=== PATIENT | female | born 2000 | race Two or more races ===

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

== ENCOUNTER 2019-03-03 17:41 | Emergency (ER) | payer MEDICAID ==
[2019-03-03 18:04] VITALS: BP 128/77
[2019-03-03] MEDS ORDERED: HYDROCODONE/ACETAMINOPHEN 5-325 MG TABLET PO ONE (18:50)
--- NOTE | 2019-03-03 18:51 | ER Document Report ---
HPI - HPI Patient complains to provider of: Right ankle and foot pain Time Seen by Provider: 03/03/19 18:42 Onset: Yesterday Onset/Duration: Sudden Quality of pain: Achy Pain Level: 4 Context: Patient states [place] the [place] and thought something was in the water. Patient states that she moved suddenly and felt a pop in her foot and ankle. Patient complains of persistent pain since then. Patient does have a previous history of fracture to the right ankle Associated Symptoms: Other - Right foot and ankle pain Exacerbated by: Standing, Movement, Walking Relieved by: Denies Similar symptoms previously: Yes Recently seen / treated by doctor: No - ROS ROS below otherwise negative: Yes Systems Reviewed and Negative: Yes All other systems reviewed and negative - NEURO Neurology: DENIES: Weakness - GASTROINTESTINAL Gastrointestinal: DENIES: Nausea - REPRODUCTIVE LMP: 02/18/19 Reproductive: DENIES: : - MUSCULOSKELETAL Musculoskeletal: REPORTS: Extremity pain, Swelling - DERM Skin Color: Normal Skin Problems: None Past Medical History - General Information source: Patient - Social History Smoking Status: Never Smoker Frequency of alcohol use: None Drug Abuse: None Occupation: None Lives with: Family Family History: Reviewed & Not Pertinent Pulmonary Medical History: Reports: Hx Asthma Renal/ Medical History: Reports: Hx Ovarian Cysts. Denies: Hx Peritoneal Dialysis Psychiatric Medical History: Reports: Hx Attention Deficit Hyperactivity Disorder, Hx Bipolar Disorder, Hx Depression Traumatic Medical History: Reports: Hx Fractures - Patient had a subtle right posterior malleolar fracture found only by MRI Past Surgical History: Reports: Hx Orthopedic Surgery - r ankle, Hx Tonsillectomy - Immunizations Immunizations up to date: Yes Vertical Provider Document - CONSTITUTIONAL Agree With Documented VS: Yes Exam Limitations: No Limitations General Appearance: WD/WN, No Apparent Distress - INFECTION CONTROL TRAVEL OUTSIDE OF THE [place] IN LAST 30 DAYS: No - HEENT HEENT: Atraumatic, Normocephalic - NECK Neck: Normal Inspection - RESPIRATORY Respiratory: No Respiratory Distress - CARDIOVASCULAR Pulses: Normal: Dorsalis pedis - BACK Back: Normal Inspection - MUSCULOSKELETAL/EXTREMETIES Musculoskeletal/Extremeties: MAEW, Tender - Right ankle tenderness over bilateral malleolar area, right midfoot tenderness over first cuneiform, Edema - Right lateral malleolar. negative: Eccymosis - NEURO Level of Consciousness: Awake, Alert, Appropriate Motor/Sensory: No Motor Deficit - DERM Integumentary: Warm, Dry, No Rash Course - Vital Signs Vital signs: Temp Pulse Resp BP Pulse Ox 97.4 F 70 18 128/77 H 98 03/03/19 18:03 03/03/19 18:03 03/03/19 18:03 03/03/19 18:03 03/03/19 18:03 - Diagnostic Test Radiology reviewed: Pending, Image reviewed Procedures - Immobilization Right Ankle Pre-Proc Neuro Vasc Exam: Normal Immobilizer type: Ankle stirrup Performed by: PCT Post-Proc Neuro Vasc Exam: Normal Alignment checked and good: Yes Discharge - Discharge Clinical Impression: Right ankle sprain Qualifiers: Encounter type: initial encounter Involved ligament of ankle: unspecified ligament Qualified Code(s): S93.401A - Sprain of unspecified ligament of right a nkle, initial encounter Right foot sprain Qualifiers: Encounter type: initial encounter Qualified Code(s): S93.601A - Unspecified sprain of right foot, initial encounter Condition: Stable Disposition: HOME, SELF-CARE Instructions: Acetaminophen, Ankle Stirrup Splint ([facility]), Use of Crutches ([facility]), Ice & Elevation ([facility]), Sprain ([facility]), Sprained Ankle ([facility]) Additional Instructions: Return immediately for any new or worsening symptoms Followup with your primary care provider, call tomorrow to make a followup appointment Follow-up with your orthopedic doctor for recheck, call tomorrow for follow-up Weight bearing as tolerated Prescriptions: Naproxen [Naprosyn 250 Nmg Tablet] 1 tab PO BID #14 tablet Referrals: FABIEN YANES DO [Primary Care Provider] - Follow up as needed [facility] [Provider Group] - Follow up as needed
--- NOTE | 2019-03-03 20:05 | RADIOLOGY REPORT (SQ) ---
EXAM DESCRIPTION: FOOT RIGHT COMPLETE COMPLETED DATE/TIME: 03/03/2019 7:26 pm REASON FOR STUDY: rolled foot[place]ankle [place] COMPARISON: 02/16/2016 NUMBER OF VIEWS: Three views. TECHNIQUE: AP, lateral and oblique radiographic images acquired of the right foot. LIMITATIONS: None. FINDINGS: MINERALIZATION: Normal. BONES: No acute fracture or dislocation. No worrisome bone lesions. JOINTS: No effusions. SOFT TISSUES: No soft tissue swelling. No foreign body. OTHER: No other significant finding. IMPRESSION: NEGATIVE STUDY OF THE RIGHT FOOT. NO RADIOGRAPHIC EVIDENCE OF ACUTE INJURY. TECHNICAL DOCUMENTATION: JOB ID: [id number] [employer]- All Rights Reserved Reading location - IP/workstation name: [email or web address]
--- NOTE | 2019-03-03 20:06 | RADIOLOGY REPORT (SQ) ---
EXAM DESCRIPTION: ANKLE RIGHT COMPLETE COMPLETED DATE/TIME: 03/03/2019 7:26 pm REASON FOR STUDY: rolled foot[place]ankle at beach COMPARISON: 02/27/2016 NUMBER OF VIEWS: Three views. TECHNIQUE: AP, lateral, and oblique radiographic images acquired of the right ankle. LIMITATIONS: None. FINDINGS: MINERALIZATION: Normal. BONES: No acute fracture or dislocation. No worrisome bone lesions. JOINTS: No effusions. SOFT TISSUES: No soft tissue swelling. No foreign body. OTHER: No other significant finding. IMPRESSION: NEGATIVE STUDY OF THE RIGHT ANKLE. NO RADIOGRAPHIC EVIDENCE OF ACUTE INJURY. TECHNICAL DOCUMENTATION: JOB ID: [id number] [employer]- All Rights Reserved Reading location - IP/workstation name: [email or web address]
== END 2019-03-03 20:24 | disposition home or self-care (01) ==
LOC: ER 17:41
DX: S93.401A Sprain of unspecified ligament of right ankle, initial encounter (principal); S93.601A Unspecified sprain of right foot, initial encounter; X50.0XXA Overexertion from strenuous movement or load, initial encounter; Y92.832 Beach as the place of occurrence of the external cause
CPT/HCPCS: 99283; 73610; 73630; L1902

== ENCOUNTER 2019-08-23 02:51 | Emergency (ER) | payer MEDICAID ==
--- NOTE | 2019-08-23 05:05 | RADIOLOGY REPORT (SQ) ---
EXAM DESCRIPTION: XR CHEST 2 VIEWS COMPLETED DATE/TME: 08/23/2019 04:40 CLINICAL HISTORY: 19 years, Female, SOB COMPARISON: None. NUMBER OF VIEWS: 2 TECHNIQUE: 2 views of the chest LIMITATIONS: None. FINDINGS: Heart size is normal. Lungs are clear. No pneumothorax IMPRESSION: No acute cardiopulmonary process copyright 2010 [employer]- All Rights Reserved
[2019-08-23] MEDS ORDERED: PREDNISONE 20 MG TABLET PO ONE (06:00)
[2019-08-23] MEDS ORDERED: IPRATROPIUM/ALBUTEROL 0.5-2.5 MG/3 ML AMPUL NEB ONE (06:00)
[2019-08-23 06:02] LABS: APPEARANCE,URINE SLIGHTLY-CLOUDY; BILIRUBIN,URINE NEGATIVE (NEGATIVE); COLOR,URINE YELLOW; GLUCOSE, URINE NEGATIVE (NEGATIVE); KETONES,URINE NEGATIVE (NEGATIVE); LEUKOCYTE ESTERASE,URINE NEGATIVE (NEGATIVE); NITRITE,URINE NEGATIVE (NEGATIVE); PROTEIN,URINE NEGATIVE (NEGATIVE); URINE SPECIFIC GRAVITY 1.015; UROBILINOGEN,URINE NEGATIVE mg/dL (<2.0)
[2019-08-23 06:09] LABS: ABSOLUTE EOSINOPHILS # (AUTO) 0.2 10^3/uL (0.0-0.6); ABSOLUTE LYMPHOCYTES (AUTO) 1.9 10^3/uL (0.5-4.7); ABSOLUTE MONOCYTES (AUTO) 1.1 10^3/uL (0.1-1.4); ABSOLUTE NEUT (AUTO) 3.9 10^3/uL (1.7-8.2); BASOPHILS % (AUTO) 0.7 % (0-2); EOSINOPHILS % (AUTO) 2.3 % (0-6); HEMATOCRIT 40.1 % (36.0-47.0); HEMOGLOBIN 13.8 g/dL (12.0-15.5); LYMPHOCYTES % (AUTO) 26.6 % (13-45); MEAN CORPUSCULAR HEMOGLOBIN 30.3 pg (27.0-33.4); MEAN CORPUSCULAR HGB CONC 34.5 g/dL (32.0-36.0); MEAN CORPUSCULAR VOLUME 88 fl (80-97); MONOCYTES % (AUTO) 15.6 % (3-13); PLATELET COUNT 319 10^3/uL (150-450); RED BLOOD COUNT 4.55 10^6/uL (3.72-5.28); RED CELL DISTRIBUTION WIDTH 11.9 % (11.5-14.0); SEGMENTED NEUTROPHILS % (AUTO) 54.8 % (42-78); TOTAL CELLS COUNTED % (AUTO) 100 %; WHITE BLOOD COUNT 7.2 10^3/uL (4.0-10.5)
[2019-08-23 06:18] LABS: ALBUMIN 3.7 g/dL (3.5-5.0); ALKALINE PHOSPHATASE 79 U/L (38-126); ANION GAP 8 (5-19); ASPARTATE AMINO TRANSFERASE 33 U/L (14-36); BILIRUBIN,DIRECT 0.1 mg/dL (0.0-0.4); BILIRUBIN,TOTAL 0.4 mg/dL (0.2-1.3); BLOOD UREA NITROGEN 9 mg/dL (7-20); CALCIUM 9.8 mg/dL (8.4-10.2); CARBON DIOXIDE 24 mmol/L (22-30); CHLORIDE 106 mmol/L (98-107); GLUCOSE 87 mg/dL (75-110); POTASSIUM 4.1 mmol/L (3.6-5.0); TOTAL PROTEIN 6.2 g/dL (6.3-8.2)
[2019-08-23] MEDS ORDERED: KETOROLAC TROMETHAMINE INJ/PF 30 MG/1 ML SDV IV ONE (06:42)
--- NOTE | 2019-08-23 06:42 | ER Document Report ---
ED General - General Chief Complaint: Cold Symptoms Stated Complaint: CHEST PAIN,SHORTNESS OF BREATH Time Seen by Provider: 08/23/19 04:39 Primary Care Provider: FABIEN YANES DO [Primary Care Provider] - Follow up as needed Notes: Patient is a 19-year-old female history of asthma presents to the emergency department for cough and congestion for the last 5 days. Patient voices in the last 24 hours she has had over 6 episodes of posttussive vomiting. Voices to 2 episodes of diarrhea as well. States she did have a fever T-max 103 last evening. Patient's denying any abdominal pain or dysuria. States intermit tently her lower ribs hurt when she takes a deep breath or coughs. States last time she is her albuterol inhaler was approximately 2300 hrs. yesterday evening. TRAVEL OUTSIDE OF THE [place] IN LAST 30 DAYS: No - Related Data Allergies/Adverse Reactions: No Known Allergies Allergy (Verified 03/03/19 17:43) Home Medications: albuterol inhaler Past Medical History - General Information source: Patient - Social History Smoking Status: Never Smoker Chew tobacco use (# tins/day): No Frequency of alcohol use: None Drug Abuse: None Family History: Reviewed & Not Pertinent Patient has suicidal ideation: No Patient has homicidal ideation: No Pulmonary Medical History: Reports: Hx Asthma Renal/ Medical History: Reports: Hx Ovarian Cysts. Denies: Hx Peritoneal Dialysis Psychiatric Medical History: Reports: Hx Attention Deficit Hyperactivity Disorder, Hx Bipolar Disorder, Hx Depression Traumatic Medical History: Reports: Hx Fractures - Patient had a subtle right posterior malleolar fracture found only by MRI Past Surgical History: Reports: Hx Orthopedic Surgery - r ankle, Hx Tonsillectomy - Immunizations Immunizations up to date: Yes Review of Systems - Review of Systems Constitutional: Fever EENT: See HPI Cardiovascular: See HPI Respiratory: See HPI Gastrointestinal: See HPI Genitourinary: No symptoms reported Female Genitourinary: No symptoms reported Musculoskeletal: No symptoms reported Skin: No symptoms reported Hematologic/Lymphatic: No symptoms reported Neurological/Psychological: No symptoms reported Physical Exam - Vital signs Vitals: Temp Pulse Resp BP Pulse Ox 99.3 F 93 17 143/79 H 97 08/23/19 03:00 08/23/19 03:00 08/23/19 03:00 08/23/19 03:00 08/23/19 03:00 - Notes Notes: GENERAL: Alert, interacts well. No acute distress. HEAD: Normocephalic, atraumatic. EYES: Pupils equal, round, and reactive to light. Extraocular movements intact. ENT: Oral mucosa moist, tongue midline. Nares patent, TM's intact, no nerythematous, nonbulging bilaterally. Pharynx within normal limits no palatal petechiae noted NECK: Full range of motion. Supple. Trachea midline. No lymphadenopathy appreciated LUNGS: Expiratory wheeze to auscultation bilateral bases, no discernible rales, or rhonchi. No respiratory distress. HEART: Regular rate and rhythm. No murmur ABDOMEN: Soft, non-tender. Non-distended. Bowel sounds present in all 4 quadrants. EXTREMITIES: Moves all 4 extremities spontaneously. No edema, normal radial and dorsalis pedis pulses bilaterally. No cyanosis. BACK: no cervical, thoracic, lumbar midline tenderness. No saddle anesthesia, normal distal neurovascular exam. NEUROLOGICAL: Alert and oriented x3. Normal speech. cranial nerves II through XII grossly intact. PSYCH: Normal affect, normal mood. SKIN: Warm, dry, normal turgor. No rashes or lesions noted. Course - Re-evaluation Re-evalutation: Laboratory 08/23/19 08/23/19 08/23/19 05:11 05:11 05:11 WBC 7.2 RBC 4.55 Hgb 13.8 Hct 40.1 MCV 88 MCH 30.3 MCHC 34.5 RDW 11.9 Plt Count 319 Lymph % (Auto) 26.6 Stanton % (Auto) 15.6 H Eos % (Auto) 2.3 Baso % (Auto) 0.7 Absolute Neuts (auto) 3.9 Absolute Lymphs (auto) 1.9 Absolute Monos (auto) 1.1 Absolute Eos (auto) 0.2 Absolute Basos (auto) 0.0 Seg Neutrophils % 54.8 Sodium 137.5 Potassium 4.1 Chloride 106 Carbon Dioxide 24 Anion Gap 8 BUN 9 Creatinine 0.66 Est GFR ( Amer) > 60 Est GFR (MDRD) Non-Af > 60 Glucose 87 Calcium 9.8 Total Bilirubin 0.4 Direct Bilirubin 0.1 Neonat Total Bilirubin Not Reportable Neonat Direct Bilirubin Not Reportable Neonat Indirect Bili Not Reportable AST 33 ALT 43 Alkaline Phosphatase 79 Total Protein 6.2 L Albumin 3.7 Lipase 46.0 Serum HCG, Qual NEGATIVE Urine Color Urine Appearance Urine pH Ur Specific [place] Urine Protein Urine Glucose (UA) Urine Ketones Urine Blood Urine Nitrite Urine Bilirubin Urine Urobilinogen Ur Leukocyte Esterase Urine WBC (Auto) Urine RBC (Auto) Squamous Epi Cells Auto Urine Mucus (Auto) Urine Ascorbic Acid 08/23/19 05:52 WBC RBC Hgb Hct MCV MCH MCHC RDW Plt Count Lymph % (Auto) Stanton % (Auto) Eos % (Auto) Baso % (Auto) Absolute Neuts (auto) Absolute Lymphs (auto) Absolute Monos (auto) Absolute Eos (auto) Absolute Basos (auto) Seg Neutrophils % Sodium Potassium Chloride Carbon Dioxide Anion Gap BUN Creatinine Est GFR ( Amer) Est GFR (MDRD) Non-Af Glucose Calcium Total Bilirubin Direct Bilirubin Neonat Total Bilirubin Neonat Direct Bilirubin Neonat Indirect Bili AST ALT Alkaline Phosphatase Total Protein Albumin Lipase Serum HCG, Qual Urine Color YELLOW Urine Appearance SLIGHTLY-CLOUDY Urine pH 7.0 Ur Specific [place] 1.015 Urine Protein NEGATIVE Urine Glucose (UA) NEGATIVE Urine Ketones NEGATIVE Urine Blood NEGATIVE Urine Nitrite NEGATIVE Urine Bilirubin NEGATIVE Urine Urobilinogen NEGATIVE Ur Leukocyte Esterase NEGATIVE Urine WBC (Auto) 3 Urine RBC (Auto) 1 Squamous Epi Cells Auto 10 Urine Mucus (Auto) RARE Urine Ascorbic Acid NEGATIVE Chest X-Ray 08/23/19 04:40 IMPRESSION: No acute cardiopulmonary process copyright 2011 [employer]- All Rights Reserved Patient was given breathing treatments in the emergency department. Upon reassessment of her lungs. Clear and equal in all mills. Patient was also given steroids. Discussed continued use of albuterol inhaler and steroids for the next few days. Patient's labs show no signs of leukocytosis or electrolyte abnormalities. Patient's vomiting is posttussive in nature. Discussed close follow-up with primary care provider with close return precautions. Patient stable for discharge. - Vital Signs Vital signs: Temp Pulse Resp BP Pulse Ox 98.1 F 102 H 17 125/80 94 08/23/19 07:04 08/23/19 07:04 08/23/19 03:00 08/23/19 07:04 08/23/19 07:04 - Laboratory Result Diagrams: 08/23/19 05:11 08/23/19 05:11 Laboratory results interpreted by me: 08/23/19 08/23/19 05:11 05:11 Stanton % (Auto) 15.6 H Total Protein 6.2 L Discharge - Discharge Clinical Impression: Upper respiratory infection Qualifiers: URI type: unspecified viral URI Qualified Code(s): J06.9 - Acute upper respiratory infection, unspecified Asthma Qualifiers: Asthma severity: mild Asthma persistence: intermittent Asthma complication type: with acute exacerbation Qualified Code(s): J45.21 - Mild intermittent asthma with (acute) exacerbation Diarrhea Qualifiers: Diarrhea type: unspecified type Qualified Code(s): R19.7 - Diarrhea, unspecified Condition: Stable Disposition: HOME, SELF-CARE Instructions: Viral Syndrome ([facility]), Upper Respiratory Illness ([facility]), Diarrhea, Nonspecific ([facility]), Asthma ([facility]) Additional Instructions: As we discussed you have been seen and treated in the emergency department for your generalized cough, congestion, rib pain. Your labs revealed no signs of abnormalities. Your chest x-ray reveals no signs of pneumonia. Please make sure you use your albuterol every 4 hours for the next 3 days. Please also make sure you take steroids as prescribed. Please stay well-hydrated and follow-up with your primary care provider. Should you have any concerns please immediately return to the emergency room. Prescriptions: Prednisone [Deltasone 20 mg Tablet] 3 tab PO DAILY 5 Days tablet Albuterol Sulfate [Proair HFA Inhalation Aerosol 8.5 gm MDI] 2 puff IH Q4H PRN #1 mdi PRN Reason: Referrals: FABIEN YANES DO [Primary Care Provider] - Follow up as needed
[2019-08-23 07:05] VITALS: BP 125/80
[2019-08-23] MEDS ORDERED: ALBUTEROL SULFATE HFA (90 MCG/PUFF) 8 GM MDI (1 MDI/ER DISP) IH ONE (07:12)
--- NOTE | 2019-08-23 11:13 | EKG REPORT ---
SEVERITY:- NORMAL ECG - SINUS RHYTHM : Confirmed by: Jenn Stewart MD 23-Aug-2019 11:13:08
== END 2019-08-23 07:44 | disposition home or self-care (01) ==
LOC: ER 02:51
DX: J45.21 Mild intermittent asthma with (acute) exacerbation (principal); J06.9 Acute upper respiratory infection, unspecified; B97.89 Other viral agents as the cause of diseases classified elsewhere; Z79.899 Other long term (current) drug therapy; R05 Cough; R11.10 Vomiting, unspecified; R19.7 Diarrhea, unspecified; R07.81 Pleurodynia
CPT/HCPCS: 93005; 36415; 83690; 84703; 85025; 80053; 81001; 71046; 93010; J1885; J7512; J3490; J7620; 94640; 96374; 99285

== ENCOUNTER 2019-09-11 09:40 | Emergency (ER) | payer OTHER, MEDICAID ==
[2019-09-11 09:45] VITALS: BP 124/76
[2019-09-11] MEDS ORDERED: KETOROLAC TROMETHAMINE INJ/PF 30 MG/1 ML SDV IM ONE (10:07)
--- NOTE | 2019-09-11 10:10 | ER Document Report ---
HPI - HPI Time Seen by Provider: 09/11/19 10:06 Pain Level: 4 Context: Patient is a 19-year-old female who presents emergency department with chief complaint of neck and shoulder pain. Patient reports she developed neck pain that started about 2 days ago. Patient denies injury. 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 Patient reports yesterday she was lifting a 40 pound byrne retriever when she had her pop to the back of her neck. Patient reports pain is to her upper back and radiates to bilateral shoulders. Patient denies of fall. Patient states she has not taken anything for her discomfort or pain. Patient denies numbness or tingling to the upper extremities. - REPRODUCTIVE Reproductive: DENIES: : Past Medical History - General Information source: Patient - Social History Smoking Status: Current Every Day Smoker Chew tobacco use (# tins/day): No Frequency of alcohol use: None Drug Abuse: None Lives with: Family Family History: Reviewed & Not Pertinent Patient has suicidal ideation: No Patient has homicidal ideation: No - Past Medical History Cardiac Medical History: Reports: None Pulmonary Medical History: Reports: Hx Asthma EENT Medical History: Reports: None Neurological Medical History: Reports: None Endocrine Medical History: Reports: None Renal/ Medical History: Reports: Hx Ovarian Cysts. Denies: Hx Peritoneal Dialysis Malignancy Medical History: Reports: None GI Medical History: Reports: None Musculoskeletal Medical History: Reports None Skin Medical History: Reports None Psychiatric Medical History: Reports: Hx Attention Deficit Hyperactivity Disorder, Hx Bipolar Disorder, Hx Depression Traumatic Medical History: Reports: Hx Fractures - Patient had a subtle right posterior malleolar fracture found only by MRI Infectious Medical History: Reports: None Past Surgical History: Reports: Hx Orthopedic Surgery - r ankle, Hx Tonsillectomy - Immunizations Immunizations up to date: Yes Vertical Provider Document - CONSTITUTIONAL Agree With Documented VS: Yes Exam Limitations: No Limitations General Appearance: No Apparent Distress - INFECTION CONTROL TRAVEL OUTSIDE OF THE [place] IN LAST 30 DAYS: No - HEENT HEENT: Atraumatic, Normal ENT Exam, Normocephalic, PERRLA - NECK Neck: Normal Inspection Notes: Patient does have slight tenderness to the cervical midline spine. Patient does have tenderness to the bilateral trapezius muscle with palpation. Patient does have full range of motion to her bilateral shoulders. There are no point tenderness to the shoulders. - RESPIRATORY Respiratory: Breath Sounds Normal, No Respiratory Distress - CARDIOVASCULAR Cardiovascular: Regular Rate, Regular Rhythm - GI/ABDOMEN Gastrointestinal: Abdomen Soft, Abdomen Non-Tender, Normal Bowel Sounds - MUSCULOSKELETAL/EXTREMETIES Musculoskeletal/Extremeties: FROM, Non-Tender - NEURO Level of Consciousness: Awake, Alert, Appropriate - DERM Integumentary: Warm, Dry, No Rash Course - Re-evaluation Re-evalutation: 09/11/19 10:33 Patient x-ray negative for any acute bony abnormality. I did give patient a shot of Toradol. I did inform the patient to refrain from taking ibuprofen or any other NSAIDs for the next 6 to 8 hours due to this injection. Patient in no acute distress and verbalized understanding of discharge instructions. - Vital Signs Vital signs: Temp Pulse Resp BP Pulse Ox 97.7 F 68 20 124/76 96 09/11/19 10:04 09/11/19 09:44 09/11/19 10:04 09/11/19 09:44 09/11/19 10:04 - Diagnostic Test Radiology reviewed: Reports reviewed Radiology results interpreted by me: 09/11/19 10:28 Cervical Spine X-Ray 09/11/19 10:08 IMPRESSION: No acute bony abnormality. No significant degenerative change. Discharge - Discharge Clinical Impression: Muscle strain Condition: Stable Disposition: HOME, SELF-CARE Additional Instructions: Today you are seen in the emergency department for a neck, bilateral shoulder pain and upper back pain. Your x-ray of your neck was negative for any acute bony abnormality. Your symptoms are consistent with a muscle strain. This often occurs with strenuous activity or injury that suddenly stretches the muscle. Some strains do take days to heal. The initial treatment is ice packs and rest. Please return to the emergency department if you develop pain that is severe, numbness to your upper extremities or any new or worsening symptoms. Besides using the ice packs please use anti-inflammatories such as ibuprofen. Muscle Strain You have strained a muscle -- torn the fibers within the muscle. This often occurs with strenuous exertion, or during an injury that suddenly stretches the muscle. The seriousness of a strain varies. Some strains heal within days, others cause problems for months. X-rays cannot show a muscle strain. X-rays are taken only if symptoms suggest that a fracture could be present. The usual treatment of a muscle strain is rest and ice packs. Sometimes, a sling, splint, or crutches may be necessary to rest the muscle. The muscle can be used again once pain subsides. Severe strains require a special exercise and stretching program to prevent permanent stiffness and disability. Your doctor will advise you if this will be necessary. Call the doctor immediately if pain or swelling becomes severe, or if numbness or discoloration develop. Forms: Return to Work Referrals: FABIEN YANES DO [NO LOCAL MD] - Follow up as needed
--- NOTE | 2019-09-11 10:26 | RADIOLOGY REPORT (SQ) ---
EXAM DESCRIPTION: CERV SP 4 OR 5 VIEWS COMPLETED DATE/TIME: 09/11/2019 10:19 am REASON FOR STUDY: neck pain COMPARISON: 04/11/2016 NUMBER OF VIEWS: Five views. TECHNIQUE: AP, lateral, obliques and odontoid radiographic images acquired of the cervical spine. LIMITATIONS: None. FINDINGS: MINERALIZATION: Normal. ALIGNMENT: Straightening of the normal cervical lordosis, likely positional. VERTEBRAE: Vertebral bodies of normal height. DISCS: No significant osteophytes or sclerosis. Disc height maintained. FORAMINA: No osteophytes or foraminal narrowing. LATERAL AND POSTERIOR ELEMENTS: Facets, lateral masses and spinous processes without significant find ings. HARDWARE: None in the spine. SOFT TISSUES: No masses or calcifications. Lung apices clear. OTHER: No other significant finding. IMPRESSION: No acute bony abnormality. No significant degenerative change. TECHNICAL DOCUMENTATION: JOB ID: [id number] [employer]- All Rights Reserved Reading location - IP/workstation name: [email or web address]
== END 2019-09-11 10:40 | disposition home or self-care (01) ==
LOC: ER 09:40
DX: S16.1XXA Strain of muscle, fascia and tendon at neck level, initial encounter (principal); X50.0XXA Overexertion from strenuous movement or load, initial encounter; Y93.K9 Activity, other involving animal care; F17.200 Nicotine dependence, unspecified, uncomplicated
CPT/HCPCS: 99283; 96372; 72050; J1885

== ENCOUNTER 2019-11-30 09:34 | Emergency (ER) | payer MEDICAID ==
[2019-11-30] MEDS ORDERED: IBUPROFEN 600 MG TABLET PO ONE (10:16)
[2019-11-30] MEDS ORDERED: ACETAMINOPHEN 325 MG TABLET PO ONE (10:16)
--- NOTE | 2019-11-30 10:19 | ER Document Report ---
HPI - HPI Time Seen by Provider: 11/30/19 10:16 Context: Patient is a 19-year-old female presents to the emergency department with a chief complaint of right ankle pain. Patient states that she slipped down some steps and ended up hurting her ankle. Patient has history of surgery done on the same ankle a year and a half ago. Patient states that hurts to bear weight on the ankle. - ROS Systems Reviewed and Negative: Yes All other systems reviewed and negative - CONSTITUTIONAL Constitutional: DENIES: Fever, Chills - RESPIRATORY Respiratory: DENIES: Trouble Breathing, Coughing - REPRODUCTIVE Reproductive: DENIES: : - MUSCULOSKELETAL Musculoskeletal: REPORTS: Extremity pain - Right ankle, Swelling - Right ankle. DENIES: Back Pain, Neck Pain - DERM Skin Color: Normal Skin Problems: None Past Medical History - General Information source: Patient - Social History Smoking Status: Unknown if Ever Smoked Family History: Reviewed & Not Pertinent Pulmonary Medical History: Reports: Hx Asthma Renal/ Medical History: Reports: Hx Ovarian Cysts. Denies: Hx Peritoneal Dialysis Psychiatric Medical History: Reports: Hx Attention Deficit Hyperactivity Disorder, Hx Bipolar Disorder, Hx Depression Traumatic Medical History: Reports: Hx Fractures - Patient had a subtle right posterior malleolar fracture found only by MRI Past Surgical History: Reports: Hx Orthopedic Surgery - r ankle, Hx Tonsillectomy - Immunizations Immunizations up to date: Yes Vertical Provider Document - CONSTITUTIONAL Agree With Documented VS: Yes Exam Limitations: No Limitations General Appearance: No Apparent Distress - INFECTION CONTROL TRAVEL OUTSIDE OF THE [place] IN LAST 30 DAYS: No - HEENT HEENT: Atraumatic, Normocephalic, PERRLA - NECK Neck: Normal Inspection - RESPIRATORY Respiratory: No Respiratory Distress - CARDIOVASCULAR Cardiovascular: Regular Rhythm Pulses: Normal: Posterior tibial, Dorsalis pedis - MUSCULOSKELETAL/EXTREMETIES Musculoskeletal/Extremeties: Non-Tender - Right lower leg, Tender - Right lateral and anterior portion of ankle. negative: FROM - Decreased range of motion at right ankle - NEURO Level of Consciousness: Awake, Alert, Appropriate Motor/Sensory: No Motor Deficit, No Sensory Deficit - DERM Integumentary: Warm, Dry, No Rash Course - Re-evaluation Re-evalutation: 11/30/19 11:11 Patient's x-ray does not show any acute fracture at this time. Advised her to follow-up with orthopedics in regards to this visit. She states that she will follow-up with the orthopedic who did her surgery. Instructed her on RICE treatment. Dorsalis pedis and posterior tibial pulses 2+. Capillary refill less than 3 seconds. Follow-up precautions were given. Verbal discharge instructions were given to the patient. They verbalized understanding. They are stable for discharge. - Vital Signs Vital signs: Temp Pulse Resp BP Pulse Ox 97.7 F 72 16 122/65 99 11/30/19 10:03 11/30/19 10:03 11/30/19 10:03 11/30/19 10:03 11/30/19 10:03 Procedures - Immobilization Right Ankle Pre-Proc Neuro Vasc Exam: Normal Immobilizer type: Janes wrap, Ankle stirrup, Crutches, Post-op shoe Performed by: PCT Post-Proc Neuro Vasc Exam: Normal, Unchanged from pre-exam Alignment checked and good: Yes Discharge - Discharge Clinical Impression: Right ankle pain Qualifiers: Chronicity: acute Qualified Code(s): M25.571 - Pain in right ankle and joints of right foot Condition: Stable Disposition: HOME, SELF-CARE Instructions: Janes Wrap ([facility]), Ankle Stirrup Splint ([facility]), Use of Crutches ([facility]), Ice & Elevation ([facility]) Additional Instructions: You are seen today in the emergency department for right ankle pain after slipping. At this time, there is no fracture identified on your x-ray. Please follow-up with your primary care provider and get a referral to orthopedics, or you can follow-up with 1 of the orthopedic providers below. Please rest, apply ice, elevate, and wear the Janes wrap to help with your swelling. Take ibuprofen 600 mg and acetaminophen 1000 mg every 6 hours [id number] for the next couple of days to help manage your pain. Forms: Return to Work Referrals: [facility] [Provider Group] - Follow up tomorrow PEREZ DIAMOND MD [ACTIVE STAFF] - Follow up as needed SAGAR LEDEZMA JR, DO [ACTIVE PROVISIONAL STAFF] - Follow up as needed LAURA BELLO MD [ACTIVE PROVISIONAL STAFF] - Follow up as needed
--- NOTE | 2019-11-30 10:57 | RADIOLOGY REPORT (SQ) ---
EXAM DESCRIPTION: ANKLE RIGHT COMPLETE COMPLETED DATE/TIME: 11/30/2019 10:37 am REASON FOR STUDY: slipped; ankle pain COMPARISON: AP, lateral, oblique views of the right ankle from 03/03/2019 NUMBER OF VIEWS: Three views. TECHNIQUE: AP, lateral, and oblique radiographic images acquired of the right ankle. LIMITATIONS: None. FINDINGS: MINERALIZATION: Normal. BONES: Screw track in the distal fibula. There is no acute fracture or dislocation. The ankle morti se and talar dome are intact. JOINTS: No effusions. SOFT TISSUES: No soft tissue swelling or radiopaque foreign body. OTHER: Enthesophytes at the calcaneal insertion of the plantar fascia. IMPRESSION: No acute osseous abnormality of the right ankle. TECHNICAL DOCUMENTATION: JOB ID: [id number] 2010 [employer]- All Rights Reserved Reading location - IP/workstation name: [email or web address]
[2019-11-30 11:32] VITALS: BP 120/74
== END 2019-11-30 11:30 | disposition home or self-care (01) ==
LOC: ER 09:34
PROC: 2W3QX1Z Immobilization of Right Lower Leg using Splint (ICD-10-PCS; principal; 2019-11-30)
DX: M25.571 Pain in right ankle and joints of right foot (principal); M79.604 Pain in right leg; W10.9XXA Fall (on) (from) unspecified stairs and steps, initial encounter; Z98.890 Other specified postprocedural states; J45.909 Unspecified asthma, uncomplicated
CPT/HCPCS: 99283; 73610; 29515; J3490 ×2

== ENCOUNTER 2019-12-21 10:42 | Emergency (ER) | payer MEDICAID ==
--- NOTE | 2019-12-21 11:21 | ER Document Report ---
HPI - HPI Time Seen by Provider: 12/21/19 11:14 Pain Level: 3 Notes: Patient is otherwise healthy 19-year-old female presenting to the emergency department with fever, chills, body aches. She denies any cough or congestion. She states she woke up with the symptoms this morning. She also reports excessive fatigue, states that she has had mono in the past and that is how she feels. - REPRODUCTIVE Reproductive: DENIES: : Past Medical History - General Information source: Patient - Social History Smoking Status: Never Smoker Frequency of alcohol use: None Drug Abuse: None Family History: Reviewed & Not Pertinent Patient has suicidal ideation: No Patient has homicidal ideation: No Pulmonary Medical History: Reports: Hx Asthma Renal/ Medical History: Reports: Hx Ovarian Cysts. Denies: Hx Peritoneal Dialysis Psychiatric Medical History: Reports: Hx Attention Deficit Hyperactivity Disorder, Hx Bipolar Disorder, Hx Depression Traumatic Medical History: Reports: Hx Fractures - Patient had a subtle right posterior malleolar fracture found only by MRI Past Surgical History: Reports: Hx Orthopedic Surgery - r ankle, Hx Tonsillectomy - Immunizations Immunizations up to date: Yes Vertical Provider Document - CONSTITUTIONAL Notes: PHYSICAL EXAMINATION: GENERAL: Well-appearing, well-nourished and in no acute distress. HEAD: Atraumatic, normocephalic. EYES: Pupils equal round and reactive to light, extraocular movements intact, conjunctiva are normal. ENT: Nares patent, oropharynx clear without exudates. Moist mucous membranes. NECK: Normal range of motion, supple without lymphadenopathy LUNGS: Breath sounds clear to auscultation bilaterally and equal. No wheezes rales or rhonchi. HEART: Regular rate and rhythm without murmurs ABDOMEN: Soft, nontender, nondistended abdomen. No guarding, no rebound. No masses appreciated. Female : deferred Musculoskeletal: Normal range of motion, no pitting or edema. No cyanosis. NEUROLOGICAL: Cranial nerves grossly intact. Normal speech, normal gait. Normal sensory, motor exams PSYCH: Normal mood, normal affect. SKIN: Warm, Dry, normal turgor, no rashes or lesions noted. - INFECTION CONTROL TRAVEL OUTSIDE OF THE [place] IN LAST 30 DAYS: No Course - Re-evaluation Re-evalutation: Patient appears well, nontoxic, her work-up today has been unremarkable. Her vital signs are stable. She is 19 years old and otherwise healthy. She will be discharged home at this time with a likely viral illness. - Vital Signs Vital signs: Temp Pulse Resp BP Pulse Ox 97.9 F 63 18 118/63 99 12/21/19 11:16 12/21/19 11:16 12/21/19 11:16 12/21/19 11:16 12/21/19 11:16 - Laboratory Result Diagrams: 12/21/19 12:10 12/21/19 12:10 Discharge - Discharge Clinical Impression: Viral illness Condition: Stable Disposition: HOME, SELF-CARE Additional Instructions: Your work-up today was unremarkable to include a negative mono test. You are likely suffering from a viral illness. Rest, get plenty of fluids. Tylenol or ibuprofen for any fever, body aches. No work for the next 2 days. Forms: Return to Work Referrals: VITALIY VELAZQUEZ MD [Primary Care Provider] - Follow up as needed
[2019-12-21 12:38] LABS: ABSOLUTE EOSINOPHILS # (AUTO) 0.1 10^3/uL (0.0-0.6); ABSOLUTE LYMPHOCYTES (AUTO) 2.2 10^3/uL (0.5-4.7); ABSOLUTE MONOCYTES (AUTO) 0.7 10^3/uL (0.1-1.4); ABSOLUTE NEUT (AUTO) 6.6 10^3/uL (1.7-8.2); BASOPHILS % (AUTO) 0.4 % (0-2); HEMATOCRIT 42.9 % (36.0-47.0); HEMOGLOBIN 15.3 g/dL (12.0-15.5); LYMPHOCYTES % (AUTO) 22.6 % (13-45); MEAN CORPUSCULAR HGB CONC 35.5 g/dL (32.0-36.0); MEAN CORPUSCULAR VOLUME 87 fl (80-97); MONOCYTES % (AUTO) 6.8 % (3-13); PLATELET COUNT 395 10^3/uL (150-450); RED BLOOD COUNT 4.92 10^6/uL (3.72-5.28); SEGMENTED NEUTROPHILS % (AUTO) 69.2 % (42-78); TOTAL CELLS COUNTED % (AUTO) 100 %; WHITE BLOOD COUNT 9.6 10^3/uL (4.0-10.5)
[2019-12-21 12:42] LABS: APPEARANCE,URINE SLIGHTLY-CLOUDY; BILIRUBIN,URINE NEGATIVE (NEGATIVE); COLOR,URINE YELLOW; GLUCOSE, URINE NEGATIVE (NEGATIVE); KETONES,URINE NEGATIVE (NEGATIVE); LEUKOCYTE ESTERASE,URINE NEGATIVE (NEGATIVE); NITRITE,URINE NEGATIVE (NEGATIVE); PROTEIN,URINE NEGATIVE (NEGATIVE); URINE SPECIFIC GRAVITY 1.016; UROBILINOGEN,URINE NEGATIVE mg/dL (<2.0)
[2019-12-21 13:00] LABS: A TYPE INFLUENZA AG NEGATIVE (NEGATIVE)
[2019-12-21 13:01] LABS: B INFLUENZA AG NEGATIVE (NEGATIVE)
[2019-12-21 13:03] LABS: ALBUMIN 4.5 g/dL (3.5-5.0); ALKALINE PHOSPHATASE 102 U/L (38-126); ANION GAP 9 (5-19); ASPARTATE AMINO TRANSFERASE 27 U/L (14-36); BILIRUBIN,TOTAL 0.4 mg/dL (0.2-1.3); BLOOD UREA NITROGEN 7 mg/dL (7-20); CALCIUM 10.5 mg/dL (8.4-10.2); CARBON DIOXIDE 28 mmol/L (22-30); CHLORIDE 103 mmol/L (98-107); GLUCOSE 91 mg/dL (75-110); POTASSIUM 4.6 mmol/L (3.6-5.0); TOTAL PROTEIN 7.4 g/dL (6.3-8.2)
[2019-12-21] MEDS ORDERED: ONDANSETRON 4 MG TAB.RAPDIS ONE (13:45)
[2019-12-21] MEDS: ONDANSETRON 4 MG TAB.RAPDIS PO ONE ×2 (13:47→13:48)
[2019-12-21 13:58] VITALS: BP 116/68
== END 2019-12-21 13:57 | disposition home or self-care (01) ==
LOC: ER 10:42
DX: B34.9 Viral infection, unspecified (principal); R50.9 Fever, unspecified; R53.81 Other malaise; J45.909 Unspecified asthma, uncomplicated
CPT/HCPCS: 99283; 36415; 83690; 85025; 86308; 80053; 81001; 87804; S0119

== ENCOUNTER 2020-01-03 09:18 | Emergency (ER) | payer MEDICAID ==
--- NOTE | 2020-01-03 09:28 | ER Document Report ---
ED Medical Screen (RME) - General Chief Complaint: Leg Injury Stated Complaint: FALL/LEG INJURY Primary Care Provider: VITALIY VELAZQUEZ MD [Primary Care Provider] - Follow up as needed Notes: HPI: 19-year-old female presenting for an injury to the right knee today. Patient fell off the second step going up to her porch, landed and twisted the knee, states when she stood up she felt and heard a "pop" in the knee. 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 Denies hip or ankle discomfort. I have greeted and performed a rapid initial assessment of this patient. A comprehensive ED assessment and evaluation of the patient, analysis of test results and completion of the medical decision making process will be conducted by additional ED providers PHYSICAL EXAMINATION: Mild discomfort with attempted flexion of the right leg at the knee. There is no ankle or hip discomfort on palpation or range of motion. Negative anterior drawer sign. No laxity on varus or valgus rotation but increased discomfort over the anterior knee on palpation or movement. No ballottement of the patella TRAVEL OUTSIDE OF THE [place] IN LAST 30 DAYS: No - Related Data Allergies/Adverse Reactions: No Known Allergies Allergy (Verified 03/03/19 17:43) Past Medical History - Social History Family history: Other - adopted Pulmonary Medical History: Reports: Hx Asthma Renal/ Medical History: Reports: Hx Ovarian Cysts. Denies: Hx Peritoneal Dialysis Psychiatric Medical History: Reports: Hx Attention Deficit Hyperactivity Disorder, Hx Bipolar Disorder, Hx Depression Traumatic Medical History: Reports: Hx Fractures - Patient had a subtle right posterior malleolar fracture found only by MRI Past Surgical History: Reports: Hx Orthopedic Surgery - r ankle, Hx Tonsillectomy - Immunizations Immunizations up to date: Yes Doctor's Discharge - Discharge Referrals: VITALIY VELAZQUEZ MD [Primary Care Provider] - Follow up as needed
--- NOTE | 2020-01-03 10:19 | RADIOLOGY REPORT (SQ) ---
EXAM DESCRIPTION: KNEE RIGHT 4 VIEWS IMAGES COMPLETED DATE/TIME: 01/03/2020 10:03 am REASON FOR STUDY: fall twisting inj COMPARISON: None. NUMBER OF VIEWS: Four views right knee. LIMITATIONS: None. FINDINGS: There is no acute or significant bone, joint or soft tissue abnormality. OTHER: No other significant finding. IMPRESSION: NORMAL STUDY. TECHNICAL DOCUMENTATION: JOB ID: [id number] Reading location - IP/workstation name: [email or web address]
[2020-01-03] MEDS ORDERED: IBUPROFEN 800 MG TABLET PO ONE (11:33)
--- NOTE | 2020-01-03 11:48 | ER Document Report ---
Entered by ANA OLMSTEAD SCRIBE 01/03/20 0946 Acting as scribe for:KIMBERLY ELAM MD ED General - General Chief Complaint: Leg Injury Stated Complaint: FALL/LEG INJURY Time Seen by Provider: 01/03/20 09:35 Primary Care Provider: VITALIY VELAZQUEZ MD [Primary Care Provider] - Follow up as needed Information source: Patient Notes: This 19-year-old female presents to the emergency department complaining of right knee pain from a fall that happened this morning. Patient describes that she was walking up her front porch steps when she fell down a couple of stairs to a muddy ground. Patient states that when she stood up, she felt a "popping sensation" in her right knee and felt associated pain. Patient states that this is a normal occurrence for her knee cap to pop out of place but this morning the pain was worse then usual. Patient states that her knee cap pops out of place with moving from "danita cross applesauce to standing" as she describes an exam ple of her previous issues with her knee. Patient denies loss of consciousness, head injury, abdominal pain, SI and HI. Patient states that she has not taken any medication this morning for her pain. TRAVEL OUTSIDE OF THE [place] IN LAST 30 DAYS: No - Related Data Allergies/Adverse Reactions: No Known Allergies Allergy (Verified 01/03/20 09:29) Past Medical History - General Information source: Patient - Social History Smoking Status: Never Smoker Cigarette use (# per day): No Chew tobacco use (# tins/day): No Frequency of alcohol use: None Drug Abuse: None Lives with: Family Family History: Reviewed & Not Pertinent Patient has suicidal ideation: No Patient has homicidal ideation: No Pulmonary Medical History: Reports: Hx Asthma Renal/ Medical History: Reports: Hx Ovarian Cysts GI Medical History: Reports: Hx Gastroesophageal Reflux Disease Psychiatric Medical History: Reports: Hx Anxiety, Hx Attention Deficit Hyperactivity Disorder, Hx Bipolar Disorder, Hx Depression Traumatic Medical History: Reports: Hx Fractures - Patient had a subtle right posterior malleolar fracture found only by MRI Past Surgical History: Reports: Hx Orthopedic Surgery - r ankle, Hx Tonsillectomy - Immunizations Immunizations up to date: Yes Review of Systems - Review of Systems Constitutional: No symptoms reported EENT: No symptoms reported Cardiovascular: No symptoms reported Respiratory: No symptoms reported Gastrointestinal: See HPI. denies: Abdominal pain, Constipation Genitourinary: No symptoms reported Female Genitourinary: See HPI. denies: Musculoskeletal: See HPI, Other - Right knee pain Skin: No symptoms reported Hematologic/Lymphatic: No symptoms reported Neurological/Psychological: See HPI. denies: Homicidal ideation, Lost consciousness, Suicidal ideation -: Yes All other systems reviewed and negative Physical Exam - Notes Notes: Physical Exam: General: Alert, appears well. HEENT: Normocephalic. Atraumatic. PERRL. Extraocular movements intact. Oropharynx clear. Neck: Supple. Non-tender. Respiratory: No respiratory distress. Clear and equal breath sounds bilaterally. Cardiovascular: Regular rate and rhythm. Abdominal: Normal Inspection. Non-tender. No distension. Normal Bowel Sounds. Back: No gross abnormalities. Extremities: Moves all four extremities. Upper extremities: Normal inspection. Normal ROM. Lower extremities: No edema. Normal ROM in left knee. Right anterior and posterior knee is tender to palpation. Right knee has limited range of motion secondary to pain. No deformity. Neurological: Normal cognition. AAOx4. Normal speech. Psychological: Normal affect. Normal Mood. Skin: Warm. Dry. Normal color. Course - Re-evaluation Re-evalutation: 01/03/20 11:35 Patient lying in bed not showing any signs of significant distress. Again the right knee does not show any deformity or significant swelling. Patient is tender to range of motion on passive testing by me. Discuss further with patient that we will place an Janes wrap on right knee and also give her 800 mg ibuprofen p.o. now. Patient will be discharged home with a prescription for ibuprofen 800 mg 3 times a day if needed for pain or swelling. - Diagnostic Test Radiology reviewed: Image reviewed, Reports reviewed Radiology results interpreted by me: 01/03/20 11:36 Radiologist report shows no acute fracture or dislocation and no soft tissue swelling noted. Discharge - Discharge Clinical Impression: Sprain of right knee Condition: Stable Disposition: HOME, SELF-CARE Prescriptions: Ibuprofen [Motrin 800 mg Tablet] 800 mg PO Q8H PRN #30 tab PRN Reason: pain Referrals: VITALIY VELAZQUEZ MD [Primary Care Provider] - Follow up as needed I personally performed the services described in the documentation, reviewed and edited the documentation which was dictated to the scribe in my presence, and it accurately records my words and actions.
[2020-01-03 12:15] VITALS: BP 114/71
== END 2020-01-03 12:03 | disposition home or self-care (01) ==
LOC: ER 09:18
DX: S83.91XA Sprain of unspecified site of right knee, initial encounter (principal); W10.8XXA Fall (on) (from) other stairs and steps, initial encounter; J45.909 Unspecified asthma, uncomplicated
CPT/HCPCS: 99283; 73564; J3490

== ENCOUNTER 2020-08-05 13:28 | Emergency (ER) | payer MEDICAID ==
--- NOTE | 2020-08-05 14:27 | ER Document Report ---
ED Medical Screen (RME) - General Chief Complaint: Suicidal Ideation Stated Complaint: ANXIETY Time Seen by Provider: 08/05/20 14:24 Primary Care Provider: VITALIY VELAZQUEZ MD [Primary Care Provider] - Follow up as needed Mode of Arrival: Ambulatory Information source: Patient Notes: 20-year-old female presents to ED for complaint of suicidal ideation. She states she spoke with CCM C today and they told her she needed to come to the emergency room to be IVC need for placement for suicidal ideation. States she has a history of cutting but this time she is thinking of actually killing herself. Get her suicide protocol started. She states she has a history of anxiety and bipolar. She states she has had surgery on her right ankle for fracture no other medical history. She denies any smoking drinking or use of illicit drugs. I have greeted and performed a rapid initial assessment of this patient. A comprehensive ED assessment and evaluation of the patient, analysis of test results and completion of medical decision making process will be conducted by an additional ED providers. TRAVEL OUTSIDE OF THE [place] IN LAST 30 DAYS: No - Related Data Allergies/Adverse Reactions: No Known Allergies Allergy (Verified 01/03/20 09:29) Past Medical History - Social History Family history: Other - adopted Pulmonary Medical History: Reports: Hx Asthma Renal/ Medical History: Reports: Hx Ovarian Cysts. Denies: Hx Peritoneal Dialysis GI Medical History: Reports: Hx Gastroesophageal Reflux Disease Psychiatric Medical History: Reports: Hx Anxiety, Hx Attention Deficit Hyperactivity Disorder, Hx Bipolar Disorder, Hx Depression Traumatic Medical History: Reports: Hx Fractures - Patient had a subtle right posterior malleolar fracture found only by MRI Past Surgical History: Reports: Hx Orthopedic Surgery - r ankle, Hx Tonsillectomy - Immunizations Immunizations up to date: Yes Physical Exam - Vital signs Vitals: Temp Pulse Resp BP Pulse Ox 97.9 F 87 18 132/80 H 96 08/05/20 13:38 08/05/20 13:38 08/05/20 13:38 08/05/20 13:38 08/05/20 13:38 Course - Vital Signs Vital signs: Temp Pulse Resp BP Pulse Ox 97.9 F 87 18 132/80 H 96 08/05/20 13:38 08/05/20 13:38 08/05/20 13:38 08/05/20 13:38 08/05/20 13:38 Doctor's Discharge - Discharge Referrals: VITALIY VELAZQUEZ MD [Primary Care Provider] - Follow up as needed
[2020-08-05 15:01] LABS: ABSOLUTE BASOPHILS # (AUTO) 0.1 10^3/uL (0.0-0.2); ABSOLUTE EOSINOPHILS # (AUTO) 0.2 10^3/uL (0.0-0.6); ABSOLUTE LYMPHOCYTES (AUTO) 3.1 10^3/uL (0.5-4.7); ABSOLUTE MONOCYTES (AUTO) 0.9 10^3/uL (0.1-1.4); ABSOLUTE NEUT (AUTO) 6.5 10^3/uL (1.7-8.2); BASOPHILS % (AUTO) 0.6 % (0-2); EOSINOPHILS % (AUTO) 1.4 % (0-6); HEMATOCRIT 44.6 % (36.0-47.0); HEMOGLOBIN 15.7 g/dL (12.0-15.5); LYMPHOCYTES % (AUTO) 29.2 % (13-45); MEAN CORPUSCULAR HEMOGLOBIN 30.6 pg (27.0-33.4); MEAN CORPUSCULAR HGB CONC 35.2 g/dL (32.0-36.0); MEAN CORPUSCULAR VOLUME 87 fl (80-97); PLATELET COUNT 422 10^3/uL (150-450); RED BLOOD COUNT 5.13 10^6/uL (3.72-5.28); RED CELL DISTRIBUTION WIDTH 12.2 % (11.5-14.0); SEGMENTED NEUTROPHILS % (AUTO) 60.8 % (42-78); TOTAL CELLS COUNTED % (AUTO) 100 %; WHITE BLOOD COUNT 10.8 10^3/uL (4.0-10.5)
[2020-08-05 15:18] LABS: APPEARANCE,URINE SLIGHTLY-CLOUDY; BILIRUBIN,URINE NEGATIVE (NEGATIVE); COLOR,URINE YELLOW; GLUCOSE, URINE NEGATIVE (NEGATIVE); KETONES,URINE NEGATIVE (NEGATIVE); LEUKOCYTE ESTERASE,URINE NEGATIVE (NEGATIVE); NITRITE,URINE NEGATIVE (NEGATIVE); PROTEIN,URINE NEGATIVE (NEGATIVE); URINE SPECIFIC GRAVITY 1.023; UROBILINOGEN,URINE NEGATIVE mg/dL (<2.0)
[2020-08-05 15:25] LABS: ALBUMIN 3.9 g/dL (3.5-5.0); ALKALINE PHOSPHATASE 90 U/L (38-126); ANION GAP 8 (5-19); ASPARTATE AMINO TRANSFERASE 39 U/L (14-36); BILIRUBIN,TOTAL 0.4 mg/dL (0.2-1.3); BLOOD UREA NITROGEN 8 mg/dL (7-20); CALCIUM 10.2 mg/dL (8.4-10.2); CARBON DIOXIDE 25 mmol/L (22-30); CHLORIDE 105 mmol/L (98-107); GLUCOSE 89 mg/dL (75-110); POTASSIUM 4.4 mmol/L (3.6-5.0); TOTAL PROTEIN 6.3 g/dL (6.3-8.2)
[2020-08-05 15:34] LABS: ACETAMINOPHEN < 10 ug/mL (10-30); ALCOHOL < 10 mg/dL (NONE DETECTED); SALICYLATE < 1.0 mg/dL (2.0-20.0)
[2020-08-05 15:36] LABS: URINE AMPHETAMINES SCREEN NEGATIVE; URINE BARBITURATES SCREEN NEGATIVE; URINE COCAINE SCREEN NEGATIVE; URINE METHADONE SCREEN NEGATIVE; URINE PHENCYCLIDINE SCREEN NEGATIVE
[2020-08-05 15:37] LABS: URINE BENZODIAZEPINES SCREEN UNCONFIRMED POSITIVE; URINE MARIJUANA (THC) SCREEN UNCONFIRMED POSITIVE
--- NOTE | 2020-08-05 15:53 | ER Document Report ---
ED Psych Disorder / Suicide <JORGE ALBERTO WOODY - Last Filed: 08/05/20 16:56> - General Mode of Arrival: Ambulatory TRAVEL OUTSIDE OF THE [place] IN LAST 30 DAYS: No <NICO SALINAS - Last Filed: 08/05/20 17:22> - General Chief Complaint: Suicidal Ideation Stated Complaint: ANXIETY Time Seen by Provider: 08/05/20 14:24 Primary Care Provider: Valencia Brown [Outside] - Follow up in 3-5 days VITALIY VELAZQUEZ MD [Primary Care Provider] - Follow up as needed Notes: 20 year old female with h/o PCOS and anxiety and bipolar disorder is here with dad with complaints of crying and being told by counsellor to seek treatment in the ED. She has a h/o forearm cutting and was considering cutting herself. She is here with dad. No SI or HI when I see her. She relates she cried for 3 hours last night and was unable to work today and was to start a new job. (NICO SALINAS) - Related Data Allergies/Adverse Reactions: No Known Allergies Allergy (Verified 01/03/20 09:29) Past Medical History - General Information source: Patient - Social History Smoking Status: Unknown if Ever Smoked Chew tobacco use (# tins/day): No Drug Abuse: None Family History: Reviewed & Not Pertinent Patient has homicidal ideation: No Pulmonary Medical History: Reports: Hx Asthma Renal/ Medical History: Reports: Hx Ovarian Cysts. Denies: Hx Peritoneal Dialysis GI Medical History: Reports: Hx Gastroesophageal Reflux Disease Psychiatric Medical History: Reports: Hx Anxiety, Hx Attention Deficit Hyperactivity Disorder, Hx Bipolar Disorder, Hx Depression Traumatic Medical History: Reports: Hx Fractures - Patient had a subtle right posterior malleolar fracture found only by MRI Past Surgical History: Reports: Hx Orthopedic Surgery - r ankle, Hx Tonsillectomy - Immunizations Immunizations up to date: Yes <NICO SALINAS - Last Filed: 08/05/20 17:22> Review of Systems - Review of Systems Constitutional: No symptoms reported EENT: No symptoms reported Cardiovascular: No symptoms reported Respiratory: No symptoms reported Gastrointestinal: No symptoms reported Genitourinary: No symptoms reported Female Genitourinary: No symptoms reported Musculoskeletal: No symptoms reported Skin: No symptoms reported Hematologic/Lymphatic: No symptoms reported Neurological/Psychological: Anxiety. denies: No symptoms reported <NICO SALINAS P - Last Filed: 08/05/20 17:22> Physical Exam - Vital signs Interpretation: Normal - General General appearance: Appears well, Alert - HEENT Head: Normocephalic, Atraumatic Eyes: Normal Pupils: PERRL - Respiratory Respiratory status: No respiratory distress Chest status: Nontender Breath sounds: Normal Chest palpation: Normal - Cardiovascular Rhythm: Regular Heart sounds: Normal auscultation Murmur: No - Abdominal Inspection: Normal Distension: No distension Bowel sounds: Normal Tenderness: Nontender Organomegaly: No organomegaly - Back Back: Normal, Nontender - Extremities General upper extremity: Normal inspection, Nontender, Normal color, Normal ROM, Normal temperature General lower extremity: Normal inspection, Nontender, Normal color, Normal ROM, Normal temperature, Normal weight bearing. No: Jim's sign - Neurological Neuro grossly intact: Yes Cognition: Normal Orientation: AAOx4 [place] Coma Scale Eye Opening: Spontaneous [place] Coma Scale Verbal: Oriented [place] Coma Scale Motor: Obeys Commands [place] Coma Scale Total: 15 Speech: Normal Motor strength normal: LUE, RUE, LLE, RLE Sensory: Normal - Psychological Associated symptoms: Normal affect, Normal mood - Skin Skin Temperature: Warm Skin Moisture: Dry Skin Color: Normal <NICO SALINAS P - Last Filed: 08/05/20 17:22> - Vital signs Vitals: Temp Pulse Resp BP Pulse Ox 97.9 F 87 18 132/80 H 96 08/05/20 13:38 08/05/20 13:38 08/05/20 13:38 08/05/20 13:38 08/05/20 13:38 Course - Laboratory Result Diagrams: 08/05/20 14:34 08/05/20 14:34 <JORGE ALBERTO WOODY - Last Filed: 08/05/20 16:56> - Laboratory Result Diagrams: 08/05/20 14:34 08/05/20 14:34 - EKG Interpretation by Me EKG shows normal: Sinus rhythm Rate: Normal - NSR NL [place] [address] elevation or depression my interpretation. <NICO SALINAS P - Last Filed: 08/05/20 17:22> - Re-evaluation Re-evalutation: 08/05/20 15:52 MDM I have discussed the pt with our [facility] and they will evaluate and provide input. She is currently in the local system for follow up and does have an appointment for 08/09 next week with local psychiatry care. (NICO SALINAS) - Vital Signs Vital signs: Temp Pulse Resp BP Pulse Ox 97.9 F 87 18 132/80 H 96 08/05/20 13:38 08/05/20 13:38 08/05/20 13:38 08/05/20 13:38 08/05/20 13:38 - Laboratory Laboratory results interpreted by tx: 08/05/20 08/05/20 14:34 14:34 WBC 10.8 H Hgb 15.7 H AST 39 H ALT 61 H Salicylates < 1.0 L Acetaminophen < 10 L Discharge <JORGE ALBERTO WOODY - Last Filed: 08/05/20 16:56> <NICO SALINAS - Last Filed: 08/05/20 17:22> - Discharge Clinical Impression: Anxiety about health Condition: Stable Disposition: HOME, SELF-CARE Instructions: Anxiety ([facility]) Additional Instructions: You have have been evaluated by both medical and behavioral health teams and have been deemed appropriate for discharge. You have been started on Zyprexa 2.5mg twice daily and Buspar 5mg daily; please take as directed. You are recommended to continue working with your outpatient mental health provider, [facility], for both medication management and therapy; please practice coping skills discussed. Anxiety The physician feels that some of your health problems are being caused by anxiety. Anxiety affects your health in many ways. Anxiety alone can cause palpitations, sweats, chest pains, abdominal pains, shortness of breath, and headaches. It contributes to ulcer disease, high blood pressure, irritable bowel syndrome, and has been shown to cause flare-ups of many other diseases. Anxiety is not a simple disorder to treat. If the anxiety is due to recent life stresses, you may simply need time to "work through" the changes. If the anxiety is due to an underlying unhappiness with yourself or due to psychiatric disturbance, professional help will be needed. Your physician can refer you for further help if needed. Anti-anxiety medication is occasionally given if the stress is acute or if you are having trouble sleeping. Chronic or frequent use of these medications is not a good idea because the body becomes reliant on it, preventing you from dealing with life's normal stresses. DEPRESSION: Your evaluation reveals that you have mental depression. While symptoms may be vague, they often include disturbance of sleep, fatigue, loss of appetite, and general loss of interest in life. While depression may be a side effect of drugs, or a reaction to a major change in your life, many cases have no known ca use. If depression is acute, and related to a major loss in your life, you can expect it to clear completely with time. If you have been depressed a long time, are prone to repeated bouts of depression or low mood, or have been thinking of suicide, get help. Depression can be treated with anti-depressant medication and counselling. Long-term depression will often take a few weeks to clear, even with appropriate medication. Follow-up care is important. FOLLOW-UP CARE: If you have been referred to a physician for follow-up care, call the physicians office for an appointment as you were instructed or within the next two days.~ If you experience worsening or a significant change in your symptoms, notify the physician immediately or return to the Emergency Department at any time for re-evaluation. Please make sure to keep your follow up next week. Please return here for any p roblems or any concerns including but not limited to thoughts of self harm or hurting others. Take your medicines as directed. Referrals: VITALIY VELAZQUEZ MD [Primary Care Provider] - Follow up as needed [facility] Kevin [Outside] - Follow up in 3-5 days
[2020-08-05] MEDS ORDERED: OLANZAPINE 2.5 MG TABLET PO ONE (17:07)
[2020-08-05] MEDS ORDERED: BUSPIRONE HCL 10 MG TABLET PO ONE (17:07)
--- NOTE | 2020-08-05 17:13 | PSYCHOLOGICAL NOTE ---
Psych Note - Psych Note Date seen by psych provider: 08/05/20 Time seen by psych provider: 16:00 - 1630 Psych Note: Reason for Consult:Anxiety/Panic attack/ SI Consent Permissions: Patient's father at bedside per patient's request Patient arrived to [facility] ED via POV for concerns for suicidal ideation, anxiety and panic attack. Clinical Presentation: IVC Criteria per [place] GS 122C Dangerous to others Within the relevant past the individual No has inflicted or attempted to inflict or threatened to inflict serious bodily harm on another AND No that there is a reasonable probability that this conduct will be repeated. OR No has acted in such a way as to create a substantial risk of serious bodily harm to another AND No that there is a reasonable probability that this conduct will be repeated. OR No has engaged in extreme destruction of property AND NO that there is a reasonable probability that this conduct will be repeated. Previous episodes of dangerousness to others, when applicable, may be considered when determining reasonable probability of future dangerous conduct. Clear, cogent, and convincing evidence that an individual has committed a homicide in the relevant past is prima facie evidence of dangerousness to others. Dangerous to self Within the relevant past the individual has done any of the following: acted in such a way as to show ALL of the following: No The individual would be unable without care, supervision, and the continued assistance of others not otherwise available, to exercise self- control, judgment, and discretion in the conduct of the individual's daily responsibilities and social relations or to satisfy the individual's need for nourishment, personal or medical care, halfway, or self-protection and safety. AND No There is a reasonable probability of the individual suffering serious physical debilitation within the near future unless adequate treatment is given. A showing of behavior that is grossly irrational, of actions that the individual is unable to control, of behavior that is grossly inappropriate to the situation, or of other evidence of severely impaired insight and judgment shall create a prima facie inference that the individual is unable to care for himself or herself. OR Yes has attempted suicide or threatened suicide AND No that there is a reasonable probability of suicide unless adequate treatment is given Patient reports passive suicidal ideation ie no plan means or intent last night during panic attack. She denies current thoughts. OR No has mutilated himself or herself or attempted to mutilate himself or herself AND No that there is a reasonable probability of serious self-mutilation unless adequate treatment is given. Patient reports history of cutting as maladaptive coping skill with last event over a month ago. Patient is already in treatment with outpatient mental health provider, [facility]. NOTE: Previous episodes of dangerousness to self, when applicable, may be considered when determining reasonable probability of physical debilitation, suicide, or self-mutilation. Medication recommendations per [facility] contracted psychiatrist are as follows: Zyprexa 2.5mg twice daily Buspar 5mg twice daily Impression\plan: Patient is cleared from acute psychiatric services. Dr. Way was consulted to care management of this patient; attending physicians in agreement with recommendations and disposition.
[2020-08-05 17:33] VITALS: BP 121/74
--- NOTE | 2020-08-05 18:05 | EKG REPORT ---
SEVERITY:- NORMAL ECG - SINUS RHYTHM : Confirmed by: Antwon Chapa MD 05-Aug-2020 18:04:58
== END 2020-08-05 17:35 | disposition home or self-care (01) ==
LOC: ER 13:28
DX: F41.9 Anxiety disorder, unspecified (principal); R45.851 Suicidal ideations; F31.9 Bipolar disorder, unspecified
CPT/HCPCS: 93005; 99285; 36415; 80307 ×4; 84703; 85025; 80053; 81001; 93010; J3490 ×2

== ENCOUNTER 2020-08-12 20:42 | Emergency (ER) | payer MEDICAID, OTHER ==
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
[2020-08-12] MEDS ORDERED: KETOROLAC TROMETHAMINE 60 MG/2 ML SDV IM ONE (20:57)
--- NOTE | 2020-08-12 21:46 | RADIOLOGY REPORT (SQ) ---
EXAM DESCRIPTION: XR SHOULDER 2 OR MORE VIEWS COMPLETED DATE/TME: 08/12/2020 20:56 CLINICAL INDICATION: 20-year-old female, shoulder popped. TECHNIQUE: Three views LEFT shoulder were obtained in AP, internal/external rotation and transcapular projections. COMPARISON: None. FINDINGS: There is no fracture or dislocation. The joint spaces are preserved. No soft tissue abnormalities are seen. IMPRESSION: No acute radiographic abnormality.
[2020-08-12 22:16] VITALS: BP 133/78
== END 2020-08-12 22:15 | disposition home or self-care (01) ==
LOC: ER 20:42
DX: S49.92XA Unspecified injury of left shoulder and upper arm, initial encounter (principal); X58.XXXA Exposure to other specified factors, initial encounter; F17.210 Nicotine dependence, cigarettes, uncomplicated; J45.909 Unspecified asthma, uncomplicated
CPT/HCPCS: 99284; 96372; 73030; J1885

== ENCOUNTER → 2020-08-23 | Outpatient (CLI) | payer MEDICAID ==
--- NOTE | 2020-08-24 10:01 | RADIOLOGY REPORT (SQ) ---
EXAM DESCRIPTION: SHOULDER LEFT 2 OR MORE VIEWS IMAGES COMPLETED DATE/TIME: 08/23/2020 1:32 pm REASON FOR STUDY: PAIN IN LEFT SHOULDER M25.512 PAIN IN LEFT SHOULDER COMPARISON: None. 08/12/2020 NUMBER OF VIEWS: Three view. TECHNIQUE: Internal rotation, external rotation, and Y view images acquired of the left shoulder. LIMITATIONS: None. FINDINGS: MINERALIZATION: Normal. BONES: No acute fracture. No worrisome bone lesions. No significant osteophytes. GLENOHUMERAL JOINT: No significant findings. ACROMIOCLAVICULAR JOINT: No large osteophytes. SOFT TISSUES: No calcifications. VISUALIZED RIBS, SPINE, AND LUNG: No other significant finding. OTHER: No other significant finding. IMPRESSION: NEGATIVE STUDY OF THE LEFT SHOULDER. NO EXPLANATION FOR PAIN. TECHNICAL DOCUMENTATION: JOB ID: [id number] 2010 [employer]- All Rights Reserved Reading location - IP/workstation name: [email or web address]
== END ==
LOC: OD 13:15
PROVIDERS: ATTEND Nurse Practitioner Family
DX: M25.512 Pain in left shoulder (principal)

== ENCOUNTER 2020-10-12 10:25 | Emergency (ER) | payer MEDICAID ==
--- NOTE | 2020-10-12 13:55 | ER Document Report ---
ED Syncope and Near Syncope - General Chief Complaint: Fainting Stated Complaint: POSSIBLE SYNCOPE Time Seen by Provider: 10/12/20 12:59 Primary Care Provider: BOAZ LUCERO NP [Primary Care Provider] - Follow up as needed TRAVEL OUTSIDE OF THE [place] IN LAST 30 DAYS: No - HPI Notes: Patient is a 20-year-old female with a history of asthma who presents with multiple syncopal episodes that occurred earlier this morning. Patient states she was feeding her dog when she became dizzy and passed out landing on her left shoulder and hitting her head. Patient states she was unconscious for an unknown amount of time. Patient states she awoke and proceeded to tell her dad about the incident where she then had 2 more syncopal episodes. Patient describes preceding symptoms of dizziness and blurred vision. Patient reports 1 episode of vomiting with nausea as well last chest pain and shortness of breath. She denies abdominal pain. Patient states she is currently feeling much better and states most of her symptoms have now resolved. - Related Data Allergies/Adverse Reactions: No Known Allergies Allergy (Verified 01/03/20 09:29) Home Medications: albuterol PRN Past Medical History - General Information source: Patient - Social History Smoking Status: Former Smoker Frequency of alcohol use: None Drug Abuse: None Family History: Reviewed & Not Pertinent Patient has homicidal ideation: No Pulmonary Medical History: Reports: Hx Asthma Renal/ Medical History: Reports: Hx Ovarian Cysts - PCOS. Denies: Hx Peritoneal Dialysis GI Medical History: Reports: Hx Gastroesophageal Reflux Disease Musculoskeletal Medical History: Reports Hx Musculoskeletal Deformity, Reports Hx Musculoskeletal Trauma Psychiatric Medical History: Reports: Hx Anxiety, Hx Attention Deficit Hyperactivity Disorder, Hx Bipolar Disorder, Hx Depression Traumatic Medical History: Reports: Hx Fractures - Patient had a subtle right posterior malleolar fracture found only by MRI Past Surgical History: Reports: Hx Orthopedic Surgery - r ankle, Hx Tonsillectomy - Immunizations Immunizations up to date: Yes Review of Systems - Review of Systems Constitutional: No symptoms reported EENT: See HPI Cardiovascular: See HPI Respiratory: See HPI Gastrointestinal: See HPI Genitourinary: No symptoms reported Female Genitourinary: No symptoms reported Musculoskeletal: No symptoms reported Skin: No symptoms reported Hematologic/Lymphatic: No symptoms reported Neurological/Psychological: See HPI Physical Exam - Vital signs Vitals: Resp Pulse Ox 16 100 10/12/20 10:30 10/12/20 10:30 - Notes Notes: PHYSICAL EXAMINATION: VITALS: Vitals reviewed and within normal limits. GENERAL: Well-appearing, well-nourished and in no acute distress. HEAD: Atraumatic, normocephalic. EYES: Pupils equal, round, and reactive to light, extraocular movements intact, sclera anicteric, conjunctiva are normal. ENT: Nares patent. Moist mucous membranes. Oropharynx clear without exudates. NECK: Normal range of motion, supple without lymphadenopathy. LUNGS: Breath sounds clear to auscultation bilaterally and equal. No wheezes, rales, or rhonchi. HEART: Regular, rate, and rhythm without murmurs. ABDOMEN: Soft, nontender, normoactive bowel sounds. No guarding, no rebound. No masses appreciated. EXTREMITIES: Left shoulder is nontender with full range of motion. No palpable deformity to the left upper extremity. Normal range of motion, no pitting or edema. No cyanosis. NEUROLOGICAL: Face symmetric. Extraocular motions intact. Pupils are 2 mm and equally reactive. Normal speech, normal gait. 5 out of 5 strength in both the distal and proximal upper and lower extremities bilaterally. Sensation is grossly intact throughout. Finger to nose testing normal. Pronator drift normal. PSYCH: Normal mood, normal affect. SKIN: Warm, Dry, normal turgor, no rashes or lesions noted. Course - Re-evaluation Re-evalutation: Presentation of syncope of unclear etiology. Patient normotensive, alert, without focal neurologic deficits at time of arrival. Denies syncope was during exertion. No preceding symptoms of palpitations, chest pain, or shortness of breath. Patient asymptomatic at time of arrival. EKG is without evidence of HCOM, right heart strain, ST changes to suggest ischemia, prolong QTc, delta wave, epsilon wave, or Brugada syndrome. Patient denies any family history of s udden cardiac , personal history of of structural heart disease. Patient denies any symptoms to suggest an acute PE, [place], TAD, SAH, seizure, or acute GI bleed as the etiology of their syncope today. On exam, no murmurs to suggest critical aortic stenosis as possible etiology. Head CT negative. Based on overall clinical history, exam findings, vitals, and patients appearance, I feel it is safe for patient to be discharged home at this time with close outpatient follow-up and strict return precautions. Patient is in agreement with this plan, has verbalized indications for return to ED, and questions have been answered. - Vital Signs Vital signs: Temp Pulse Resp BP Pulse Ox 20 107/66 100 10/12/20 16:01 10/12/20 16:01 10/12/20 16:01 - Laboratory Results Result Diagrams: 10/12/20 10:45 10/12/20 10:45 Laboratory Results Interpreted: 10/12/20 10/12/20 10:45 15:01 Total Protein 6.1 L Albumin 3.4 L Urine Ketones TRACE H Critical Laboratory Results Reviewed: No Critical Results - Radiology Results Critical Radiology Results Reviewed: No Critical Results - EKG Interpretation by Me Additional EKG results interpreted by me: Sinus rhythm with a rate of 57. QTc 401. Normal axis. No T wave inversions or ST segment changes in consecutive leads. Discharge - Discharge Clinical Impression: Dizziness Syncope Qualifiers: Syncope type: unspecified Qualified Code(s): R55 - Syncope and collapse Condition: Stable Disposition: HOME, SELF-CARE Additional Instructions: You were seen today after an episode of passing out. Your EKG here is normal. At this time, we do not feel that your episode of passing out was from any life- threatening cause. Please drink plenty of fluids over the next several days. Return to emergency department if you have any further episodes of syncope, headache, weakness, numbness, chest pain, or shortness of breath. Please follow up closely with your primary care physician. Forms: Return to Work Referrals: BOAZ LUCERO NP [Primary Care Provider] - Follow up as needed
[2020-10-12 14:02] LABS: ABSOLUTE BASOPHILS # (AUTO) 0.1 10^3/uL (0.0-0.2); ABSOLUTE EOSINOPHILS # (AUTO) 0.1 10^3/uL (0.0-0.6); ABSOLUTE LYMPHOCYTES (AUTO) 2.2 10^3/uL (0.5-4.7); ABSOLUTE MONOCYTES (AUTO) 0.7 10^3/uL (0.1-1.4); BASOPHILS % (AUTO) 0.7 % (0-2); EOSINOPHILS % (AUTO) 1.5 % (0-6); HEMATOCRIT 39.5 % (36.0-47.0); HEMOGLOBIN 13.5 g/dL (12.0-15.5); LYMPHOCYTES % (AUTO) 24.4 % (13-45); MEAN CORPUSCULAR HEMOGLOBIN 29.8 pg (27.0-33.4); MEAN CORPUSCULAR HGB CONC 34.2 g/dL (32.0-36.0); MEAN CORPUSCULAR VOLUME 87 fl (80-97); MONOCYTES % (AUTO) 7.4 % (3-13); PLATELET COUNT 358 10^3/uL (150-450); RED BLOOD COUNT 4.53 10^6/uL (3.72-5.28); RED CELL DISTRIBUTION WIDTH 11.9 % (11.5-14.0); TOTAL CELLS COUNTED % (AUTO) 100 %; WHITE BLOOD COUNT 9.1 10^3/uL (4.0-10.5)
[2020-10-12 14:06] LABS: ALBUMIN 3.4 g/dL (3.5-5.0); ALKALINE PHOSPHATASE 88 U/L (38-126); ANION GAP 5 (5-19); ASPARTATE AMINO TRANSFERASE 25 U/L (14-36); BILIRUBIN,DIRECT 0.4 mg/dL (0.0-0.4); BILIRUBIN,TOTAL 0.5 mg/dL (0.2-1.3); BLOOD UREA NITROGEN 8 mg/dL (7-20); CARBON DIOXIDE 27 mmol/L (22-30); CHLORIDE 105 mmol/L (98-107); GLUCOSE 96 mg/dL (75-110); POTASSIUM 4.9 mmol/L (3.6-5.0); TOTAL PROTEIN 6.1 g/dL (6.3-8.2)
--- NOTE | 2020-10-12 14:08 | RADIOLOGY REPORT (SQ) ---
EXAM DESCRIPTION: CT HEAD WITHOUT IMAGES COMPLETED DATE/TIME: 10/12/2020 1:22 pm REASON FOR STUDY: syncope COMPARISON: None. TECHNIQUE: Axial images acquired through the brain without intravenous contrast. Images reviewed wi th bone, brain and subdural windows. Additional sagittal and coronal reconstructions were generated. Images stored on PACS. All CT scanners at this facility use dose modulation, iterative reconstruction, and/or weight based d osing when appropriate to reduce radiation dose to as low as reasonably achievable (ALARA). [facility]: Dose Right [facility]: CareDose [facility]: Dose Right [facility]: Teradose 4D [facility]: Smart M-SIX RADIATION DOSE: CT Rad equipment meets quality standard of care and radiation dose reduction techniq ues were employed. CTDIvol: 48.9 mGy. DLP: 910 mGy-cm. mGy. LIMITATIONS: None. FINDINGS: VENTRICLES: Normal size and contour. CEREBRUM: No masses. No hemorrhage. No midline shift. No evidence for acute infarction. Normal gra y/white matter differentiation. No areas of low density in the white matter. CEREBELLUM: No masses. No hemorrhage. No alteration of density. No evidence for acute infarction. EXTRAAXIAL SPACES: No fluid collections. No masses. ORBITS AND GLOBE: No intra- or extraconal masses. Normal contour of globe without masses. CALVARIUM: No fracture. PARANASAL SINUSES: No fluid or mucosal thickening. SOFT TISSUES: No mass or hematoma. OTHER: No other significant finding. IMPRESSION: NORMAL BRAIN CT WITHOUT CONTRAST. EVIDENCE OF ACUTE STROKE: NO. COMMENT: Quality ID # [id number]: Final reports with documentation of one or more dose reduction techniques (e.g., Automated exposure control, adjustment of the mA and/or kV according to patient size, use of iterative reconstruction technique) TECHNICAL DOCUMENTATION: JOB ID: [id number] 2010 [employer]- All Rights Reserved Reading location - IP/workstation name: [email or web address]
--- NOTE | 2020-10-12 14:09 | RADIOLOGY REPORT (SQ) ---
EXAM DESCRIPTION: CHEST SINGLE VIEW IMAGES COMPLETED DATE/TIME: 10/12/2020 1:25 pm REASON FOR STUDY: syncope COMPARISON: 08/23/2019. EXAM PARAMETERS: NUMBER OF VIEWS: One view. TECHNIQUE: Single frontal radiographic view of the chest acquired. RADIATION DOSE: NA LIMITATIONS: None. FINDINGS: LUNGS AND PLEURA: No opacities, masses or pneumothorax. No pleural effusion. MEDIASTINUM AND HILAR STRUCTURES: No masses. Contour normal. HEART AND VASCULAR STRUCTURES: Heart normal in size. Normal vasculature. BONES: No acute findings. HARDWARE: None in the chest. OTHER: No other significant finding. IMPRESSION: NO ACUTE RADIOGRAPHIC FINDING IN THE CHEST. TECHNICAL DOCUMENTATION: JOB ID: [id number] 2010 [employer]- All Rights Reserved Reading location - IP/workstation name: [email or web address]
[2020-10-12 15:23] LABS: APPEARANCE,URINE SLIGHTLY-CLOUDY; BILIRUBIN,URINE NEGATIVE (NEGATIVE); COLOR,URINE YELLOW; GLUCOSE, URINE NEGATIVE (NEGATIVE); KETONES,URINE TRACE mg/dL (NEGATIVE); LEUKOCYTE ESTERASE,URINE NEGATIVE (NEGATIVE); NITRITE,URINE NEGATIVE (NEGATIVE); PROTEIN,URINE NEGATIVE (NEGATIVE); URINE SPECIFIC GRAVITY 1.023; UROBILINOGEN,URINE NEGATIVE mg/dL (<2.0)
[2020-10-12 16:44] VITALS: BP 107/66
--- NOTE | 2020-10-12 23:23 | EKG REPORT ---
SEVERITY:- NORMAL ECG - SINUS RHYTHM : Confirmed by: Kobe Bermeo 12-Oct-2020 23:22:48
== END 2020-10-12 16:44 | disposition home or self-care (01) ==
LOC: ER 10:25
DX: R55 Syncope and collapse (principal); R42 Dizziness and giddiness; H53.8 Other visual disturbances
CPT/HCPCS: 36415; 70450; 71045; 80053; 81001; 84484; 84703; 85025; 93005; 93010; 99285